=== PATIENT | female | born 1980 | race Caucasian/White ===

== ENCOUNTER 2019-01-22 09:40 | Emergency (ER) | payer OTHER ==
[2019-01-22] MEDS: IBUPROFEN 800 MG TAB PO (11:01)
[2019-01-22] MEDS: LIDOCAINE 1% (MDV) 20 ML INJ SC (11:01)
[2019-01-22] MEDS: CEFTRIAXONE 1 GM INJ IM (11:01)
== END 2019-01-22 11:10 | disposition home or self-care (01) ==
LOC: FTE 09:40
DX: L08.9 Local infection of the skin and subcutaneous tissue, unspecified (principal); F17.210 Nicotine dependence, cigarettes, uncomplicated; B95.62 Methicillin resistant Staphylococcus aureus infection as the cause of diseases classified elsewhere
CPT/HCPCS: 81025; 96372; 99284-25